=== PATIENT | male | born 1995 | race Caucasian/White ===

== ENCOUNTER 2017-04-26 20:16 | Emergency (ER) | payer OTHER ==
[2017-04-26 20:55] LABS: PLATELET COUNT 229 10^3/uL (150-400)
--- NOTE | 2017-04-26 21:18 | CPEKG ---
Heart Rate: 69 RR Interval: 870 P-R Interval: 144 QRSD Interval: 100 QT Interval: 384 QTC Interval: 412 P [place]: 73 QRS [place]: 75 T Wave [place]: 54 EKG Severity - NORMAL ECG - EKG Impression: SINUS RHYTHM Electronically Signed By: Shawna Paredes 27-Apr-2017 05:34:58
[2017-04-26 23:05] VITALS: BP 145/85; PULSE 75; RESP 16; TEMP 98.6; O2SAT 94
--- NOTE | 2017-04-27 00:15 | EDPHY ---
H & P Smoking Status: Never smoked Time Seen by Provider: 04/26/17 20:30 HPI/ROS: CHIEF COMPLAINT: M1 hold HISTORY OF PRESENT ILLNESS: 21-year-old male presents to the emergency department on M1 hold with [facility]. Apparently the patient made a phone call to the police department stating that he had "children in his basement that he was holding hostage ". The patient was placed on M1 hold and brought to the emergency department for evaluation. Patient does not recall saying any of the statements. He currently has no physical complaints. He does not have a history of mental illness. He does not take prescribed medication on a regular basis. He does have a history of attention deficit hyperactivity disorder and has been prescribed Vyvanse in the past. He denies substance abuse. He denies suicidal ideation, homicidal ideation, auditory or visual hallucinations. REVIEW OF SYSTEMS: Constitutional: No fever, no chills. Eyes: No double or blurry vision. ENT: No sore throat. Respiratory: No cough, no shortness of breath. Cardiac: No chest pain. Gastrointestinal: No abdominal pain, vomiting or diarrhea. Genitourinary: No dysuria. Musculoskeletal: No neck or back pain. Skin: No rashes. Neurological: No headache. (Mary Horta) Past Medical/Surgical History: Attention deficit hyperactivity disorder (Mary Horta) Social History: Single (Mary Horta) Physical Exam: General Appearance: Alert, no distress. Eyes: Pupils equal and round. Extraocular motions are all intact. ENT: Mouth: Mucous membranes moist. Respiratory: No wheezing, rhonchi, or rales, lungs are clear to auscultation. Cardiovascular: Regular rate and rhythm. Gastrointestinal: Abdomen is soft and nontender, no masses, no rebound or guarding, bowel sounds normal. Neurological: Alert and oriented x 3, cranial nerves II through XII grossly intact Skin: Warm and dry, no rashes. Musculoskeletal: Nontender to palpate along the cervical, thoracic or lumbar spine. Neck is supple. Extremities: Full range of motion and no peripheral edema. Psychiatric: Patient is oriented X 3, there is no agitation. (Mary Horta) Constitutional: Initial Vital Signs Temperature (C) 36.9 C 04/26/17 20:22 Heart Rate 82 04/26/17 20:22 Respiratory Rate 18 04/26/17 20:22 Blood Pressure 154/104 H 04/26/17 20:22 O2 Sat (%) 97 04/26/17 20:22 O2 Delivery Mode Room Air Allergies/Adverse Reactions: aloe [Aloe] Allergy (Intermediate, Verified 04/26/17 20:23) Rash Home Medications: Medication Instructions Recorded NK [No Known Home Meds] 04/26/17 Medical Decision Making ED Course/Re-evaluation: 21-year-old male presents to the emergency department on M1 hold. The patient has been medically cleared and has been evaluated by mental health. The mental health lead architect is currently consulting with the on-call psychiatrist. Mental health is currently looking for placement for this patient. (Mary Horta) 1:40 a.m.- The patient has been evaluated by the mental health worker Coco. He does not meet criteria for mental health hold. He did make concerning statements, however currently denies any SI or HI. He does not have any is hallucinations. He is currently incarcerated on felony charges and will be returning to custodial. (Shawna Paredes) Differential Diagnosis: Including psychotic break, functional and major depression, situational depression, medication side effect, drugs and alcohol abuse. (Mary Horta) Care Turn Over: Care will be turned over to Dr. Shawna Paredes at 12:45 a.m. for disposition and plan. (Mary Horta) - Data Points Laboratory Results: Laboratory Results 04/26/17 20:40 04/26/17 20:40 04/26/17 04/26/17 04/26/17 20:40 20:40 20:40 WBC 9.70 10^3/uL H 10^3/uL (3.80-9.50) RBC 5.33 10^6/uL 10^6/uL (4.40-6.38) Hgb 16.3 g/dL g/dL (13.7-17.5) Hct 46.1 % % (40.0-51.0) MCV 86.5 fL fL (81.5-99.8) MCH 30.6 pg pg (27.9-34.1) MCHC 35.4 g/dL g/dL (32.4-36.7) RDW 11.9 % % (11.5-15.2) Plt Count 229 10^3/uL 10^3/uL (150-400) MPV 9.7 fL fL (8.7-11.7) Neut % (Auto) 69.9 % % (39.3-74.2) Lymph % (Auto) 21.6 % % (15.0-45.0) Bucks % (Auto) 7.5 % % (4.5-13.0) Eos % (Auto) 0.3 % L % (0.6-7.6) Baso % (Auto) 0.4 % % (0.3-1.7) Nucleat RBC Rel Count 0.0 % % (0.0-0.2) Absolute Neuts (auto) 6.77 10^3/uL H 10^3/uL (1.70-6.50) Absolute Lymphs (auto) 2.10 10^3/uL 10^3/uL (1.00-3.00) Absolute Monos (auto) 0.73 10^3/uL 10^3/uL (0.30-0.80) Absolute Eos (auto) 0.03 10^3/uL 10^3/uL (0.03-0.40) Absolute Basos (auto) 0.04 10^3/uL 10^3/uL (0.02-0.10) Absolute Nucleated RBC 0.00 10^3/uL 10^3/uL (0-0.01) Immature Gran % 0.3 % % (0.0-1.1) Immature Gran # 0.03 10^3/uL 10^3/uL (0.00-0.10) Sodium 142 mEq/L mEq/L (135-145) Potassium 3.9 mEq/L mEq/L (3.5-5.2) Chloride 101 mEq/L mEq/L (97-110) Carbon Dioxide 27 mEq/l mEq/l (22-31) Anion Gap 14 mEq/L mEq/L (8-16) BUN 17 mg/dL mg/dL (7-23) Creatinine 1.0 mg/dL mg/dL (0.7-1.3) Estimated GFR > 60 Glucose 112 mg/dL H mg/dL (70-100) Calcium 9.9 mg/dL mg/dL (8.5-10.4) TSH 4.400 uIU/mL uIU/mL (0.465-4.680) Urine Opiates Screen NEGATIVE (NEGATIVE) Urine Barbiturates NEGATIVE (NEGATIVE) Ur Phencyclidine Scrn NEGATIVE (NEGATIVE) Ur Amphetamine Screen NEGATIVE (NEGATIVE) U Benzodiazepines Scrn NEGATIVE (NEGATIVE) Urine Cocaine Screen NEGATIVE (NEGATIVE) U Marijuana (THC) Screen NEGATIVE (NEGATIVE) Ethyl Alcohol < 10 mg/dL mg/dL (0-10) Departure - Departure Disposition: Law Enforcement/Court/Usp Clinical Impression: Behavioral change Condition: Good Instructions: Mental Health Partners Referrals: [facility],. [Clinic] - As per Instructions
[2017-04-27] MEDS ORDERED: MAG HYDROX/AL HYDROX/SIMETH 30 ML UDCUP PO ONE (02:00)
== END 2017-04-27 02:09 ==
DX: F98.9 Unspecified behavioral and emotional disorders with onset usually occurring in childhood and adolescence (principal)
CPT/HCPCS: 80305; G0480